=== PATIENT | male | born 1955 | race Caucasian/White ===

== ENCOUNTER 2022-04-05 12:09 | Emergency (ER) | payer MEDICARE, OTHER ==
[~2022-04-05] VITALS: Ht 175.3 cm; Wt 100.0 kg
[2022-04-05] MEDS ORDERED: CLON-595 PO (14:11)
[2022-04-05] MEDS: ClonazePAM 1 MG TABLET PO ONE (14:15)
[2022-04-05 14:32] VITALS: BP 128/55
== END 2022-04-05 14:35 | disposition home or self-care (01) ==
LOC: EMS 12:09
DX: F41.9 Anxiety disorder, unspecified (principal)
CPT/HCPCS: 99283